=== PATIENT | female | born 1990 | race Caucasian/White ===

== ENCOUNTER 2017-10-08 11:12 | Outpatient (CLI) | payer MEDICAID ==
[~2017-10-08] VITALS: Ht 160 cm; Wt 75.7 kg
[~2017-10-08 11:12] MED LIST: ONDA4TAB14 PO; PREN1TAB49 PO
[2017-10-08 12:48] LABS: ADD UMIC YES; UR ASCORBIC ACID NEGATIVE (NEGATIVE); UR BILIRUBIN (Dip) NEGATIVE (NEGATIVE); UR BLOOD (Dip) NEGATIVE (NEGATIVE); UR CLARITY CLEAR (CLEAR); UR COLOR STRAW (YELLOW); UR GLUCOSE (Dip) NEGATIVE (NEGATIVE); UR KETONES (Dip) NEGATIVE (NEGATIVE); UR LEUKOCYTE ESTERASE (Dip) TRACE Leu/ul (NEGATIVE); UR NITRITE (Dip) NEGATIVE (NEGATIVE); UR RBC 1 /HPF (0-5); UR SPECIFIC GRAVITY (Dip) 1.005 (1.003-1.030); UR TOTAL PROTEIN (Dip) NEGATIVE (NEGATIVE); UR UROBILINOGEN (Dip) NEGATIVE (NEGATIVE)
--- NOTE | 2017-10-08 13:32 | RADRPT ---
PROCEDURE: US OB biophysical profile. CLINICAL INDICATION: labor TECHNIQUE: Multiple sonographic images of the pelvis were obtained. The images were reviewed on a PACS workstation. COMPARISON: None FINDINGS: There is a single live intrauterine , in breech presentation. A normal heart rate is identified measuring 134 beats per minute. The amniotic fluid index is within normal limits measurin g 13.9 cm. Biophysical profile: movement 2/2 tone 2/2. breathing 2/2 BOONE 2/2 Total 8 IMPRESSION: 1. Biophysical profile score of 8/8. 2. Single live intrauterine in cephalic presentation with normal heart rate of 134 b pm. 3. Normal amniotic fluid index of 13.9 cm. Physician Jay Date Time Electronically viewed and signed by Physician Jay on 10/08/2017 13:31 JL/
[2017-10-08 14:01] VITALS: Ht 160 cm; Wt 75.7 kg
--- NOTE | 2017-10-08 14:50 | RADRPT ---
PROCEDURE: CERVICAL LENGTH ULTRASOUND CLINICAL INDICATION: Pre-term labor. TECHNIQUE: Trans-vaginal imaging of the cervical canal was performed utilizing peguero-scale imaging. Sagittal and transverse images were obtained. Trans-abdominal images were also obtained. The saran ges were reviewed on a PACS workstation. COMPARISON: OB ultrasound BPP of the same day. FINDINGS: The cervix is closed with a length of 4.1 cm. IMPRESSION: 1. Cervical length measures 4.1 cm. RPTAT: HH .Anuja Shah MD, MD Date Time Electronically viewed and signed by .Anuja Shah MD, MD on 10/08/2017 14:50 .N/
--- NOTE | 2017-10-08 15:38 | TRIAGE ---
OB Triage Datetime Report Generated by CPN: 10/08/2017 15:38 Datetime: 10/08/2017 12:19 Time of Arrival: 10/08/2017 11:10 EGA: 23.6 Arrived By: Ambulatory Arrived From: Home Chief Complaint: R/O PTL Movement: Present Contractions: Denies/Absent Rupture of Membranes: Denies Vaginal Bleeding: None Vaginal Discharge: Denies Recent Sexual Intercouse: Denies Abdominal Trauma: Not Applicable Patient Complaints: None Time Provider Notified: 10/08/2017 12:21 Provider Notified: MANE Initial Plan: NST, UA, Cervical Length, BPP and BOONE.
--- NOTE | 2017-10-08 17:38 | PN ---
Triage Information Date/Time 10/08/17 Reason for visit: Abd/pelvic pain Weeks of Gestation 23w6d /Para Diabetes: none Hypertention: none Objective Heart Rate: 150's Contractions: None Results/Medications Results 24 hrs Laboratory Tests Test 10/08/17 12:30 Urine Color STRAW Urine Clarity CLEAR Urine pH 6.0 Urine Specific [place] 1.005 Urine Ketones NEGATIVE Urine Nitrite NEGATIVE Urine Bilirubin NEGATIVE Urine Urobilinogen NEGATIVE Urine Leukocyte Esterase TRACE A Urine Microscopic RBC 1 Urine Microscopic WBC 1 Urine Hemoglobin NEGATIVE Urine Glucose NEGATIVE Urine Total Protein NEGATIVE Imaging Results CVL 4.5 Disposition: Discharge Assessment/Plan IUP 23w6d round lig syn plan discharge home with instructions of avoiding sudden movement or swing or heavy lifting rest maternity girdle RTH prn KEN GARCIA MD Oct 08, 2017 17:38
== END 2017-10-08 15:34 | disposition home or self-care (01) ==
LOC: OBT 11:12 → L-D 11:12 → OBT 15:34
PROVIDERS: ATTEND Obstetrics & Gynecology
DX: O26.892 Other specified pregnancy related conditions, second trimester (principal); Z3A.23 23 weeks gestation of pregnancy; R10.2 Pelvic and perineal pain
CPT/HCPCS: 76817; 76818; 81001; Z7500; 87086; G0463

== ENCOUNTER 2017-12-22 19:11 | Emergency (ER) | END 2017-12-22 21:01 | disposition left against medical advice (07) ==

== ENCOUNTER 2017-12-22 19:53 | Outpatient (CLI) | END 2017-12-23 00:24 | disposition home or self-care (01) ==

== ENCOUNTER 2018-01-19 20:21 | Inpatient (IN) | END 2018-01-20 14:30 | disposition home or self-care (01) | DRG 781 ==

== ENCOUNTER 2018-01-24 06:32 | Inpatient (IN) | END 2018-01-27 15:05 | disposition home or self-care (01) | DRG 775 ==